=== PATIENT | male | born 1955 | race Caucasian/White ===

== ENCOUNTER 2018-04-02 11:41 | Outpatient (CLI) | payer BC ==
[2018-04-02 12:37] LABS: #Basophils 0.1 thou/uL (0.0-0.2); #Eosinphils 0.5 thou/uL (0.0-0.7); #Lymphocytes 1.4 thou/uL (1.20-3.40); #Monocytes 0.6 thou/uL (0.11-0.59); #Neutrophils 2.7 thou/uL (1.40-6.50); %Basophils 1.4 % (0.0-1.0); %Eosinophils 9.4 % (0.0-10.0); %Lymphocytes 25.9 % (21.0-51.0); %Monocytes 11.9 % (0.0-10.0); %Neutrophils 51.4 % (42.0-75.0); Hemoglobin 15.8 g/dL (14.0-18.0); Mean Corpuscular HGB CONC 32.9 g/dL (32.0-36.0); Mean Corpuscular Hemoglobin 33.1 pg (27.0-31.0); Platelet Count 186 thou/uL (130-400); RBC Distribution Width 11.8 % (11.5-14.5); Red Blood Cell (RBC) Count 4.79 mill/uL (4.70-6.10); White Blood Cell (WBC) Count 5.2 thou/uL (4.8-10.8)
[2018-04-02 13:00] LABS: Anion Gap 8 mmol/L (10-20); BUN (Urea Nitrogen) 13 mg/dL (8.4-25.7); Calc. Creatinine Clearance 0 mL/min (70-130); Calcium 9.1 mg/dL (7.8-10.44); Carbon Dioxide 29 mmol/L (23-31); Chloride 107 mmol/L (98-107); Estimated GFR-MDRD 90; Glucose 101 mg/dL (80-115); Potassium 4.6 mmol/L (3.5-5.1); Sodium 139 mmol/L (136-145)
== END 2018-04-02 11:42 | disposition home or self-care (01) ==
LOC: LABBT 11:41
PROVIDERS: ATTEND Specialist
DX: Z01.818 Encounter for other preprocedural examination (principal); K42.9 Umbilical hernia without obstruction or gangrene
CPT/HCPCS: 80048; 85025; 93005; 93010

== ENCOUNTER 2018-04-11 08:37 | Day surgery (SDC) | payer BC ==
[2018-04-02 11:56] VITALS: BMI 27.9
[2018-04-11] MEDS ORDERED: CEFAZOLIN 2 GM/50 ML BAG ONE (09:20)
[2018-04-11] MEDS ORDERED: Ketorolac Tromethamine 30 MG/ML VIAL ONE (09:21)
[2018-04-11] MEDS ORDERED: Bupivacaine/Epinephrine 0.25% 30 ML VIAL ONE (10:28)
[2018-04-11] MEDS ORDERED: Fentanyl 100 MCG/2 ML VIAL ONE (10:33)
[2018-04-11] MEDS ORDERED: PROPOFOL 200 MG/20 ML VIAL ONE (11:55)
[2018-04-11] MEDS ORDERED: Ondansetron PF 4 MG/2 ML Vial ONE (11:55)
[2018-04-11] MEDS ORDERED: ePHEDrine/0.9% NaCl/PF SYRINGE 50 mg/10 ml ONE (11:55)
[2018-04-11] MEDS ORDERED: Glycopyrrolate 0.2 MG/ML 5 ML SYRINGE ONE (11:55)
[2018-04-11] MEDS ORDERED: Lidocaine 1% PF 5 ML VIAL ONE (11:55)
[2018-04-11] MEDS ORDERED: Dexamethasone 20 MG/5 ML VIAL ONE (11:55)
--- NOTE | 2018-04-12 15:15 | OP ---
DATE OF PROCEDURE: 04/11/2018 PREOPERATIVE DIAGNOSIS: Umbilical hernia. POSTOPERATIVE DIAGNOSIS: Umbilical hernia. OPERATION PERFORMED: Umbilical hernia with mesh using a 4.3 cm Ventralex mesh patch. ANESTHESIA: General endotracheal. INDICATIONS: The patient is a 62-year-old white male. He presents with an easily visible and palpable umbilical hernia. This has been enlarging recently and is symptomatic and he presents at this time for repair. DESCRIPTION OF OPERATION: Informed consent was obtained. The patient was taken to the operating room where general anesthesia was obtained with the patient in supine position. Abdomen was prepped with ChloraPrep and draped in sterile fashion. Local anesthetic was infiltrated using 0.25% Marcaine with epinephrine and a curvilinear infraumbilical incision was created. Dissection was carried through skin and subcutaneous tissue down to the fascia. Dissection was then carried around the hernia, and the umbilicus was dissected off the hernia sac and the fascia superiorly and was reflected superiorly. The hernia was dissected at its base. The incarcerated fatty contents were then able to be reduced intraabdominal. Careful blunt dissection was carried out to free the posterior aspect of the abdominal fascia. The anterior fascia was also dissected. A 4.3 cm Ventralex patch was obtained and placed in the preperitoneal space. It was pulled snugly against the posterior aspect of the fascia. The mesh tails were secured to the anterior fascia with interrupted sutures of 0 Prolene superiorly and inferiorly. The lateral aspects of the defect were closed with single interrupted sutures of 0 Prolene. The umbilicus was then sutured down to the fascia with two interrupted sutures of 3-0 Vicryl. The wound was closed in layers with 3-0 and 4-0 Monocryl. Additional local anesthetic was infiltrated during closure. The skin edges were then covered with Dermabond. A compression dressing was placed using cotton balls and a Tegaderm dressing in the usual fashion. There were no complications. The patient tolerated the procedure well, was taken to recovery in stable condition. Job ID: [id number]
== END 2018-04-11 13:59 | disposition home or self-care (01) ==
LOC: SDC 08:37
PROVIDERS: ATTEND Specialist
PROC: 0WUF0JZ Supplement Abdominal Wall with Synthetic Substitute, Open Approach (ICD-10-PCS; principal; 2018-04-11)
DX: K42.9 Umbilical hernia without obstruction or gangrene (principal); I10 Essential (primary) hypertension; J45.909 Unspecified asthma, uncomplicated; Z79.899 Other long term (current) drug therapy; Z87.891 Personal history of nicotine dependence
CPT/HCPCS: J0131; J1100; J1885; J2001; J2405; J2704; J3010

== ENCOUNTER 2019-02-27 09:41 | Outpatient (CLI) | payer MEDICARE | END 2019-02-27 09:42 | disposition home or self-care (01) | LOC: CTENTCT 09:41 | PROVIDERS: ATTEND Otolaryngology Plastic Surgery within the Head & Neck | DX: J34.2 Deviated nasal septum (principal) | CPT/HCPCS: 70486 ==

== ENCOUNTER 2019-06-25 10:23 | Outpatient (CLI) | payer MEDICARE ==
--- NOTE | 2019-06-25 12:23 | MRI ---
MRI CERVICAL SPINE WITHOUT CONTRAST: HISTORY: Cervical spondylosis, without myelopathy. Headache. Pain.. COMPARISON: 10/28/2008. FINDINGS: Appropriate T1 marrow signal intensity of the cervical vertebrae. Cervical spine vertebral body heigh t is maintained. No fracture. No significant STIR hyperintensity to suggest vertebral body edema or ligamentous injury. Stable intrinsic T1 and T2 hyperintensity along the right aspect of the C7 vertebral body, compatible with hemangioma. Spondylolisthesis: C3-C4: 2.3 mm of anterolisthesis. C4-C5: 2.2 mm of anterolisthesis. C5-C6: 3.3 mm of anterolisthesis. C6-C7: 2.4 mm of retrolisthesis. C2-C3: Minimal central disc herniation. No significant central canal stenosis. Moderate right foramin al narrowing due to uncovertebral hypertrophy. Left neural foramen is patent. C3-C4: Broad-based disc-osteophyte complex abuts the thecal sac. No significant central canal stenosi s. Mild to moderate right and moderate left foraminal narrowing due to uncovertebral hypertrophy. There is right greater than left facet hypertrophy. C4-C5: Broad-based disc bulge minimally abuts the thecal sac. No significant central canal stenosis. Mild bilateral foraminal narrowing. C5-C6: There is moderate loss of disc space height. Broad-based disc-osteophyte complex abuts the the guille sac. Subarachnoid space is maintained. No significant central canal stenosis. Mild right and moderate left foraminal narrowing due to uncovertebral hypertrophy as well as left facet hypertrophy. C6-C7: Disc desiccation with mild loss of disc space height. Broad-based disc bulge with a central an d right subarticular disc herniation. There is also disc material in the right neural foramen. Overall there is mild central canal stenosis. Moderate to severe right foraminal narrowing due to unc overtebral hypertrophy as well as disc material. Mild left foraminal narrowing due to uncovertebral hypertrophy. C7-T1: No significant central canal stenosis. Neural foramina are patent. IMPRESSION: Degenerative changes of the cervical spine as described above. Transcribed Date/Time: 06/25/2019 12:37 PM
--- NOTE | 2019-06-25 12:44 | MRI ---
EXAM: MRI of the brain without and with contrast HISTORY: Headaches along the posterior skull base COMPARISON: None TECHNIQUE: Multiplanar multisequence MR images were obtained of the brain without and with IV contras t. FINDINGS: There are a few subtle foci of high T2/FLAIR signal in the subcortical and surgical white matter, lik esther secondary to small vessel ischemic disease. No restricted diffusion. No abnormal enhancement. No hydronephrosis. No extra-axial fluid collection or intracranial hemorrhage. The expected flow voids are present. Corpus callosum, pituitary, and craniocervical junction are within normal limits. The calvarium and overlying soft tissues are unremarkable. The paranasal sinuses are well aerated. Fluid is seen in the right mastoid air cells. IMPRESSION: No evidence of acute intracranial abnormality.
--- NOTE | 2019-06-25 12:48 | MRI ---
EXAM: MRA and MRV head without contrast HISTORY: Posterior skull base headaches COMPARISON: None TECHNIQUE: An MRA/MRV of the head was performed without contrast using 3-D [id number] imaging. 3-D rotationa l reformats were performed. FINDINGS: Right intracranial internal carotid artery: Patent without narrowing or occlusion Right anterior cerebral artery: Patent without narrowing or occlusion Right middle cerebral artery: Patent without narrowing or occlusion Left intracranial internal carotid artery: Patent without narrowing or occlusion Left anterior cerebral artery: Patent without narrowing or occlusion Left middle cerebral artery: Patent without narrowing or occlusion No aneurysmal dilatation is seen in the anterior circulation. Right vertebral artery: Patent without narrowing or occlusion Left vertebral artery: Patent without narrowing or occlusion Basilar artery: Patent without narrowing or occlusion The posterior cerebral arteries and cerebellar arteries are patent without narrowing or occlusion. No aneurysmal dilatation is seen in the posterior circulation. MRV images shows patency of the sagittal sinus without filling defect. The sigmoid and straight sinus es are unremarkable and symmetric. IMPRESSION: No significant MRA/MRV abnormality of the head
[2019-06-25] MEDS ORDERED: Magnevist 469MG/ML 20 ML VIAL ONE (16:16)
== END 2019-06-25 10:24 | disposition home or self-care (01) ==
LOC: MRI 10:23
PROVIDERS: ATTEND Oral & Maxillofacial Surgery
DX: R51 Headache (principal); M47.812 Spondylosis without myelopathy or radiculopathy, cervical region
CPT/HCPCS: 70544; 70553; 72141; 82565; A9579

== ENCOUNTER 2019-06-27 09:56 | Outpatient (CLI) | payer MEDICARE ==
--- NOTE | 2019-06-27 10:37 | RAD ---
4 views cervical spine: 06/27/2019 COMPARISON: None HISTORY: Cervical spondylosis FINDINGS: Open-mouth odontoid view demonstrates a normal-appearing dens and C1-2 articulation. Lateral exam demonstrates anterolisthesis at C3-4 measuring 5 mm, and at C4-5 measuring 2-3 mm. Disc space narrowing with anterior osteophyte formation noted at C4-5, C5-6, and C6-7. No prevertebral soft tissue swelling. There is significant bilateral facet and uncovertebral osteophy te formation within the mid cervical spine, most prominent at C3-4 and C4-5. IMPRESSION: Multilevel cervical spine degenerative change as described above.
== END 2019-06-27 09:57 | disposition home or self-care (01) ==
LOC: RAD 09:56
PROVIDERS: ATTEND Family Medicine
DX: M47.812 Spondylosis without myelopathy or radiculopathy, cervical region (principal)
CPT/HCPCS: 72040

== ENCOUNTER 2019-07-03 11:10 | Outpatient (CLI) | payer MEDICARE ==
--- NOTE | 2019-07-03 13:55 | RAD ---
CERVICAL SPINE SERIES 4 VIEWS TO INCLUDE FLEXION AND EXTENSION: Date: 07/03/2019 COMPARISON: 06/27/2019 exam. FINDINGS: Bones appear demineralized. There is marked degenerative disc narrowing at the C6-7 level. Minimal an terolisthesis of C3 on C4 is again demonstrated. It does not appear to appreciably change between fle xion and extension views. There are degenerative facet changes present. IMPRESSION: Arthritic changes of the spine as above. POS: [facility]
== END 2019-07-03 11:11 | disposition home or self-care (01) ==
LOC: TBSIIMAG 11:10
PROVIDERS: ATTEND Neurological Surgery
DX: M54.2 Cervicalgia (principal); M46.92 Unspecified inflammatory spondylopathy, cervical region
CPT/HCPCS: 72040

== ENCOUNTER 2019-09-19 03:30 | Emergency (ER) | payer MEDICARE ==
[2019-09-19] MEDS ORDERED: Oxymetazoline HCl 0.05% (30 ML BOT) ONE (03:58)
== END 2019-09-19 04:30 | disposition home or self-care (01) ==
LOC: ERS 03:30
DX: R04.0 Epistaxis (principal); K21.9 Gastro-esophageal reflux disease without esophagitis; I10 Essential (primary) hypertension; J45.909 Unspecified asthma, uncomplicated; N40.0 Benign prostatic hyperplasia without lower urinary tract symptoms
CPT/HCPCS: 99283